=== PATIENT | female | born 1990 | race Caucasian/White ===

== ENCOUNTER 2025-02-02 10:48 | Outpatient (CLI) | payer BC, SELFPAY | END 2025-02-02 10:49 | disposition home or self-care (01) | LOC: NFLDREF 02-05 07:11 | PROVIDERS: Visit Provider Registered Nurse | DX: Z13.9 Encounter for screening, unspecified (principal) | CPT/HCPCS: 80061; 82947 ==

== ENCOUNTER 2025-03-23 17:57 | Emergency (ER) | payer BC, SELFPAY ==
--- OUTSIDE RECORDS SUMMARY | 2025-03-23 17:59 | XMS_ITS | Clinical Summary ---
Author Organization [facility] Address [address], [place] [address] Care Team Providers Care Extension Service Supervisor Name Role Phone Unassigned, Provider Primary Care Provider Unava ilable Source Comments You are receiving this document as you are listed as the primary care provider,follow-up provider, or the patient has been referred to you for consultation.This is in compliance with the Medicare andMedicaid EHR Incentive Program,which states Providers who transition their patient to another setting of careor provider of care or refers their patient to another provider of care shouldprovide summary care record for each transition of care or referral. [facility] Allergies No known active allergies Medications MedicationSigDispense QuantityRefillsLast FilledStart DateEnd DateStatus Cholecalciferol 100 MCG (4000 UT) CAPS Take 6,000 Units by mouth.Active LEVOMEFOLATE GLUCOSAMINE OR Take 1,000 mcg by mouth daily.Active VIT-FE FUMARATE-FA OR Take by mouth.Active pyridoxine (VITAMIN B-6) 100 MG tablet Take 1 Tablet (100 mg) by mouth.Active ascorbic acid (VITAMINC) 500 MG tablet Take 1 Tablet (500 mg) by mouth.Active omega-3 fatty acids (FISH OIL) 1000 MG capsule Take 2 Capsules (2,000 mg) by mouth daily.Active certolizumab pegol (CIMZIA) 200 MG/ML Indications:Rheumatoid arthritis, involving unspecified site, unspecified whether rheumatoid factor present (HRC)Inject 1 mL (200 mg) subcutaneously every 14 days. 2 Each 5Active Active Problems No known active problems Encounters DateTypeDepartmentCare EhuuTbjdtoxeooy79/07/2025Telephone [facility] [address] [address] Eula Leigh, PharmD [facility] ([facility]im[facility])01/26/2025 9:30 AM CDTPhone Visit [facility] [address] [place] [address] Eula Leigh, AnastasiiaD Rheumatoid arthritis, involving unspecified site, unspecified whether rheumatoid factor present (HRC) (Primary Dx)01/26/2025Specialty Pharmacy [facility] [address] [place] [address] Sisi Desouza PharmD 01/21/2025Results Follow-Up Rheumatology at [facility] [address] [place] [address] Johnathon Aguilar MD 01/15/2025 4:30 PM CDTLab Visit [facility] [address] [place] [address] Rheumatoid arthritis, involving unspecified site, unspecified whether rheumatoid factor present (HRC); High risk medication use01/15/2025 3:30 PM CDTOffice Visit Rheumatology at [facility] [address] [place] [address] Johnathon Aguilar MD Rheumatoid arthritis, involving unspecified site, unspecified whether rheumatoid factor present (HRC) (Primary Dx); High risk medication usefrom Last 3 Months Immunizations ImmunizationAdministration DatesNext DueInfluenza ccIIV3 6 months+ (Flucelvax) 01/15/2025PCV20 (Jxqlzcz99)01/15/2025 Social History Tobacco UseTypesPacks/DayYears UsedDateSmoking Tobacco: Never Assessed CommentsUnknownSex and Gender InformationValueDate RecordedSex Assigned at Not on fileLegal GilFweops62/28/2025 4:06 PM CDTGender IdentityNot on fileSexual OrientationNot on file Last Filed Vital Signs Vital SignReadingTime TakenCommentsBlood Pressure--Pulse--Temperature-- Respiratory Rate--Oxygen Saturation--Inhaled Oxygen Concentration--Eclrgp48.9 kg (152 lb)01/15/2025 3:55 PM HIYCqging659.1 cm (5' 5)01/15/2025 3:55 PM CDTBody Mass Index25.291 3:55 PM CDT Plan of Treatment DateTypeDepartmentCare Team (Latest Contact Info)Otveoadpvda27/23/2026 3:00 PM CSTAppointment Rheumatology at [facility] [address] [facility] [address] [place] [address] Johnathon Aguilar MD [address] [place] [address] Health MaintenanceDue DateLast DoneCommentsCervical Cancer Screening Due 1992Adult Preventive Visit02/17/2010HepB Vaccine (1)02/17/2011COVID-19 Vaccine ( season)5012/28/2021, 01/15/2021, 12/23/2020 DTaP/Tdap/Td Vaccine (13 - Tdap)5004/28/2024, 01/23/2021, 02/07/2017, Additional history existsZoster/Shingles Vaccine (2 of 2)Hib VaccineAged Out1992, 1992No longer eligible based on patient's age to complete this topicIPV (Polio) MudmpahWhnncsmnc05/16/1996, 05/30/1993, 1992, Additional history existsMCV4 VaccineAged Out07/26/2006No longer eligible based on patient's age to complete this topicHPV VaccineCompleted 01/28/2007, 12/30/2006, 09/27/2006, Additional history existsHepA Vaccine Ufvtobinj78/30/2007, 07/26/2006HIV Screening (Preventive Services)Completed 01/15/2025Hep C Screening (Preventive Services)Qcdnvbnwc48/17/2025Influenza BkauagxDpzztguyv31/17/2025, 12/23/2020, 02/13/2018, Additional history exists Pneumococcal VaccineAged Out01/15/2025No longer eligible based on patient's age to complete this topicMeningococcal B VaccineAged OutNo longer eligible based on patient's age to complete this topic Procedures Procedure NamePriorityDate/TimeAssociated DiagnosisCommentsHIV 1/2 AG/AB 4TH GEN Ndjvpjr2901/15/2025 4:36 PM CDT Rheumatoid arthritis, involving unspecified site, unspecified whether rheumatoid factor present (HRC) High risk medication use HEPATITIS C ANTIBODY, WITH REFLEX (ANTI-HCV)Danjuje1601/15/2025 4:36 PM CDT Rheumatoid arthritis, involving unspecified site, unspecified whether rheumatoid factor present (HRC) High risk medication use HEPATITIS B SURFACE ANTIGEN (HBSAG)Poktofp8901/15/2025 4:36 PM CDT Rheumatoid arthritis, involving unspecified site, unspecified whether rheumatoid factor present (HRC) High risk medication use HEPATITIS B CORE ANTIBODY (ANTI-HBC)Gzhnbcm8901/15/2025 4:36 PM CDT Rheumatoid arthritis, involving unspecified site, unspecified whether rheumatoid factor present (HRC) High risk medication use TB QUANTIFERON GOLD PLUS BYRERXXPifgvjj91/17/2025 4:36 PM CDT Rheumatoid arthritis, involving unspecified site, unspecified whether rheumatoid factor present (HRC) High risk medication use TB QUANTIFERON GOLD PLUS IE0Svzlwjg64/17/2025 4:36 PM CDT Rheumatoid arthritis, involving unspecified site, unspecified whether rheumatoid factor present (HRC) High risk medication use TB QUANTIFERON GOLD PLUS PX7Ayawojm33/17/2025 4:36 PM CDT Rheumatoid arthritis, involving unspecified site, unspecified whether rheumatoid factor present (HRC) High risk medication use TB QUANTIFERON GOLD PLUS GWKVispfot88/17/2025 4:36 PM CDT Rheumatoid arthritis, involving unspecified site, unspecified whether rheumatoid factor present (HRC) High risk medication use COMPLETE BLOOD COUNT-W/JEIITwihgrd17/17/2025 4:36 PM CDT Rheumatoid arthritis, involving unspecified site, unspecified whether rheumatoid factor present (HRC) High risk medication use TB QUANTIFERON GOLD JKASTcbfwng22/17/2025 4:36 PM CDT Rheumatoid arthritis, involving unspecified site, unspecified whether rheumatoid factor present (HRC) High risk medication use RHEUMATOID FACTOR, LYKYSWrvylpw37/17/2025 4:36 PM CDT Rheumatoid arthritis, involving unspecified site, unspecified whether rheumatoid factor present (HRC) High risk medication use ANTI-CCP CXEkreelw47/17/2025 4:36 PM CDT Rheumatoid arthritis, involving unspecified site, unspecified whether rheumatoid factor present (HRC) High risk medication use CBC AND DIFFERENTIAL YJGVENgdalqs81/17/2025 4:36 PM CDT Rheumatoid arthritis, involving unspecified site, unspecified whether rheumatoid factor present (HRC) High risk medication use CREATININE / YFNNfmninz09/17/2025 4:36 PM CDT Rheumatoid arthritis, involving unspecified site, unspecified whether rheumatoid factor present (HRC) High risk medication use VXIKeyfagg48/17/2025 4:36 PM CDT Rheumatoid arthritis, involving unspecified site, unspecified whether rheumatoid factor present (HRC) High risk medication use ALT (SGPT)Ehwxytm8901/15/2025 4:36 PM CDT Rheumatoid arthritis, involving unspecified site, unspecified whether rheumatoid factor present (HRC) High risk medication use ALKALINE PHOSPHATASE, JMBQYGdxzvrr83/17/2025 4:36 PM CDT Rheumatoid arthritis, involving unspecified site, unspecified whether rheumatoid factor present (HRC) High risk medication use from Last 3 Months Results * TB QuantiFERON Gold Plus Mitogen (01/15/2025 4:36 PM CDT)ComponentValueRef RangeTest MethodAnalysis TimePerformed AtPathologist SignatureMITOGEN>10.000 IU/mL01/18/2025 11:19 AM [facility] LABORATORYSpecimen (Source) Anatomical Location / LateralityCollection Method / VolumeCollection Time Received TimeBloodVenipuncture / Ofdbukg5901/15/2025 4:36 PM CDT1 4:36 PM CDT Narrative Authorizing ProviderResult TypeResult StatusVinay Hazel Lauren MDLAB_1Final ResultPerforming OrganizationAddressCity/State/ZIP CodePhone Number [facility] CLIA: [id number] [address] * TB QuantiFERON Gold Plus TB2 (01/15/2025 4:36 PM CDT)ComponentValueRef Range Test MethodAnalysis TimePerformed AtPathologist FlzdvkqpyHK44.147IU/mL 01/18/2025 11:30 AM [facility] LABORATORYSpecimen (Source) Anatomical Location / LateralityCollection Method / VolumeCollection Time Received TimeBloodVenipuncture / Yptsdtp8301/15/2025 4:36 PM CDT1 4:36 PM CDT Narrative Authorizing ProviderResult TypeResult StatusVinay Hazel Lauren MDLAB_1Final ResultPerforming OrganizationAddressty/State/ZIP CodePhone Number [facility] CLIA: [id number] [address] * TB QuantiFERON Gold Plus TB1 (01/15/2025 4:36 PM CDT)ComponentValueRef Range Test MethodAnalysis TimePerformed AtPathologist XszwcjvrsTU55.162IU/mL 01/18/2025 11:30 AM [facility] LABORATORYSpecimen (Source) Anatomical Location / LateralityCollection Method / VolumeCollection Time Received TimeBloodVenipuncture / Ccooxvu8701/15/2025 4:36 PM CDT1 4:36 PM CDT Narrative Authorizing ProviderResult TypeResult StatusVinay Hazel Aguilar MDLAB_1Final ResultPerforming OrganizationAddressCity/State/ZIP CodePhone Number [facility] CLIA: [id number] [address] * TB QuantiFERON Gold Plus NIL (01/15/2025 4:36 PM CDT)ComponentValueRef Range Test MethodAnalysis TimePerformed AtPathologist SignatureTB QuantiFERON Gold PlusNegative, M. tuberculosis Infection NOT likelyNegative, M. tuberculosis Infection NOT ijqfdj9701/18/2025 11:31 AM [facility] LABORATORYNIL 0.092IU/mL01/18/2025 11:31 AM [facility] LABORATORYTB1-NIL0.07IU/mL 01/18/2025 11:31 AM [facility] LABORATORYTB2-NIL0.06IU/mL01/18/2025 11:31 AM [facility] LABORATORYMitogen-NIL9.91IU/mL01/18/2025 11:31 AM [facility] LABORATORYSpecimen (Source)Anatomical Location / LateralityCollection Method / VolumeCollection TimeReceived TimeBlood Venipuncture / Lifffnp2701/15/2025 4:36 PM CDT1 4:36 PM CDT Narrative [facility] - 01/18/2025 11:31 AM CDT The results of the QuantiFERON TB Gold Plus should be correlated clinically. A single positive test in populations with a low prevalence of latent tuberculosis infection (low pretest probability), should not be taken as definitive evidence of infection. Decisions regarding retesting should be made on a case by case basis. When TB1-NIL or TB2-NIL is low (<1 IU/mL), repeat testing may alternate between positive and negative due to measurement imprecision and not necessarily a change in immune response. For more information refer to: https://www.cdc.gov/mmwr/preview/mmwrhtml/ri1920o4.htm. Authorizing ProviderResult TypeResult StatusVinsusan Aguilar MDLAB_1Final ResultPerforming OrganizationAddressCity/State/ZIP CodePhone Number [facility] CLIA: [id number] [address] * HIV 1/2 Ag/Ab 4th Generation (01/15/2025 4:36 PM CDT)ComponentValueRef Range Test MethodAnalysis TimePerformed AtPathologist SignatureHIV 1/2 Antigen/Antibody (4th generation)Negative (Non Reactive)Negative (Non Reactive)01/15/2025 7:18 PM CD[facility] LABORATORYComment:HIV-1 p24 Antigen and HIV-1/HIV-2 Antibody not detectedSpecimen (Source)Anatomical Location / LateralityCollection Method / VolumeCollection TimeReceived Time BloodVenipuncture / Iyfvrfc8101/15/2025 4:36 PM CDT1 4:36 PM CDT Narrative Authorizing ProviderResult TypeResult StatusVinsusan Oliva Talonroberta MDLAB_1Final ResultPerforming OrganizationAddressCity/State/ZIP CodePhone Number [facility] CLIA: [id number] [address] [place] [address] * Creatinine / GFR (01/15/2025 4:36 PM CDT)ComponentValueRef RangeTest Method Analysis TimePerformed AtPathologist SignatureCreatinine0.770.55 - 1.02 mg/dL 01/15/2025 7:26 PM CD[facility] LABORATORYGFR, Estimated>60>60 mL/min/1.90o72001/15/2025 7:26 PM CD[facility] LABORATORYSpecimen (Source)Anatomical Location / LateralityCollection Method / VolumeCollection TimeReceived TimeBloodVenipuncture / Airsoyd6101/15/2025 4:36 PM CDT1 4:36 PM CDT Narrative Authorizing ProviderResult TypeResult StatusVinsusan Oliva Lauren MDLAB_1Final ResultPerforming OrganizationAddressCity/State/ZIP CodePhone Number [facility] CLIA: [id number] [address] [place] [address] * CCP Antibody (01/15/2025 4:36 PM CDT)ComponentValueRef RangeTest Method Analysis TimePerformed AtPathologist SignatureAnti-CCP Antibody4.30.0 - 6.9 U/mL01/18/2025 12:27 PM CD[facility] LABORATORYAnti-CCP Antibody DamcnfclcyqmozHcdghthzCeptfaml64/20/2025 12:27 PM [facility] LABORATORYSpecimen (Source)Anatomical Location / LateralityCollection Method / VolumeCollection TimeReceived TimeBloodVenipuncture / Eipcsyd5901/15/2025 4:36 PM CDT1 4:36 PM CDT Narrative [facility] - 01/18/2025 12:27 PM CDT This result was obtained with the Bizzbya 250. Quantitative results cannot be directly compared to other manufacturers' methods. Authorizing ProviderResult TypeResult StatusVinsusan Aguilar MDLAB_1Final ResultPerforming OrganizationAddressCity/State/ZIP CodePhone Number [facility] CLIA: [id number] [address] [place] [address] * Complete Blood Count-W/Diff (01/15/2025 4:36 PM CDT)ComponentValueRef Range Test MethodAnalysis TimePerformed AtPathologist SignatureWBC8.13.5 - 10.5 x10(9)/L1 4:46 PM [facility] LABORATORYRBC4.023.90 - 5.03 x10(12)/L1 4:46 PM [facility] BZSFPHRYAOVkvcehptnt96.2 12.0 - 15.5 g/dL01/15/2025 4:46 PM [facility] ROAHMNMRDWION45.4 34.9 - 44.5 %01/15/2025 4:46 PM [facility] AJUWBUEPYVPXZ78.580.0 - 100.0 fL01/15/2025 4:46 PM [facility] NTACEUZPSHFUD45.327.6 - 33.3 pg01/15/2025 4:46 PM [facility] LUGKWAYMBXUVHF74.531.5 - 35.2 g/dL 01/15/2025 4:46 PM [facility] NUWPYKEBTXCCX54.211.9 - 15.5 % 01/15/2025 4:46 PM [facility] YUGOTIPVFYMrcyyxsuu942438 - 450 x10(9)/L1 4:46 PM [facility] LABORATORYNeutrophil Absolute5.01.7 - 7.0 10(9)/L1 4:46 PM [facility] LABORATORYLymphocyte Absolute2.21.0 - 4.8 10(9)/L1 4:46 PM [facility] LABORATORYMonocyte Absolute0.60.2 - 0.9 10(9)/L1 4:46 PM [facility] LABORATORYEosinophil Absolute0.20.0 - 0.5 10(9)/L1 4:46 PM [facility] LABORATORYBasophil Absolute 0.00.0 - 0.3 10(9)/L1 4:46 PM [facility] Immature Granulocyte %0.10.0 - 0.5 %01/15/2025 4:46 PM [facility] LABORATORYSpecimen (Source)Anatomical Location / LateralityCollection Method / VolumeCollection TimeReceived TimeBloodVenipuncture / Syzetle8501/15/2025 4:36 PM CDT1 4:36 PM CDT Narrative Authorizing ProviderResult TypeResult StatusVinsusan Aguilar MDLAB_1Final ResultPerforming OrganizationAddressCity/State/ZIP CodePhone Number [facility] CLIA: [id number] [address] [place] [address] * (ABNORMAL) Rheumatoid Factor, Quant (01/15/2025 4:36 PM CDT)ComponentValueRef RangeTest MethodAnalysis TimePerformed AtPathologist SignatureRheumatoid Factor, Cybeencemxfp20(H)<=30 IU/mL01/15/2025 7:30 PM CD[facility]ATORYSpecimen (Source)Anatomical Location / LateralityCollection Method / VolumeCollection TimeReceived TimeBloodVenipuncture / Unknown 01/15/2025 4:36 PM CDT1 4:36 PM CDT Narrative Authorizing ProviderResult TypeResult StatusVinsusan Aguilar MDLAB_1Final ResultPerforming OrganizationAddressCity/State/ZIP CodePhone Number [facility] CLIA: [id number] [address] [place] [address] * Hepatitis C Antibody, with Reflex (01/15/2025 4:36 PM CDT)ComponentValueRef RangeTest MethodAnalysis TimePerformed AtPathologist SignatureHepatitis C AntibodyNegative (Non Reactive)Negative (Non Reactive)01/15/2025 7:35 PM CDT [facility] LABORATORYComment:Antibodies to HCV not detected. Does not exclude the possiblity of exposure to HCV.Specimen (Source)Anatomical Location / LateralityCollection Method / VolumeCollection TimeReceived Time BloodVenipuncture / Osgrxea4401/15/2025 4:36 PM CDT1 4:36 PM CDT Narrative Authorizing ProviderResult TypeResult StatusJohnathon Aguilar MDLAB_1Final ResultPerforming OrganizationAddressCity/State/ZIP CodePhone Number [facility] CLIA: [id number] [address] [place] [address] * Hepatitis B Surface Antigen (01/15/2025 4:36 PM CDT)ComponentValueRef Range Test MethodAnalysis TimePerformed AtPathologist SignatureHepatitis B Surface AntigenNegative (Non Reactive)Negative (Non Reactive)01/15/2025 7:30 PM CDT [facility]ORATORYSpecimen (Source)Anatomical Location / LateralityCollection Method / VolumeCollection TimeReceived TimeBlood Venipuncture / Tujtccd8901/15/2025 4:36 PM CDT1 4:36 PM CDT Narrative Authorizing ProviderResult TypeResult StatusVinsusan Aguilar MDLAB_1Final ResultPerforming OrganizationAddressCity/State/ZIP CodePhone Number [facility] CLIA: [id number] [address] [place] [address] * Hepatitis B Core Antibody (01/15/2025 4:36 PM CDT)ComponentValueRef RangeTest MethodAnalysis TimePerformed AtPathologist SignatureHepatitis B Core Antibody Negative (Non Reactive)Negative (Non Reactive)01/15/2025 7:30 PM CDT [facility]ORATORYSpecimen (Source)Anatomical Location / LateralityCollection Method / VolumeCollection TimeReceived TimeBlood Venipuncture / Icfsxqy7401/15/2025 4:36 PM CDT1 4:36 PM CDT Narrative Authorizing ProviderResult TypeResult StatusJohnathon Aguilar MDLAB_1Final ResultPerforming OrganizationAddressCity/State/ZIP CodePhone Number [facility] CLIA: [id number] [address] * ALT (SGPT) (01/15/2025 4:36 PM CDT)ComponentValueRef RangeTest MethodAnalysis TimePerformed AtPathologist SignatureALT (SGPT)250 - 55 U/L1 7:26 PM CDTHEASC[facility] LABORATORYSpecimen (Source)Anatomical Location / LateralityCollection Method / VolumeCollection TimeReceived TimeBlood Venipuncture / Oolkpdp5001/15/2025 4:36 PM CDT1 4:36 PM CDT Narrative Authorizing ProviderResult TypeResult StatusJohnathon Aguilar MDLAB_1Final ResultPerforming OrganizationAddressCity/State/ZIP CodePhone Number [facility] CLIA: [id number] [address] * AST (01/15/2025 4:36 PM CDT)ComponentValueRef RangeTest MethodAnalysis Time Performed AtPathologist SignatureAST (SGOT)2316 - 46 U/L1 7:26 PM CDT [facility]ORATORYSpecimen (Source)Anatomical Location / LateralityCollection Method / VolumeCollection TimeReceived TimeBlood Venipuncture / Tzadnqu3401/15/2025 4:36 PM CDT1 4:36 PM CDT Narrative Authorizing ProviderResult TypeResult StatusJohnathon Aguilar MDLAB_1Final ResultPerforming OrganizationAddressCity/State/ZIP CodePhone Number [facility] CLIA: [id number] [address] * Alkaline Phosphatase, Total (01/15/2025 4:36 PM CDT)ComponentValueRef Range Test MethodAnalysis TimePerformed AtPathologist SignatureAlkaline Phosphatase 4340 - 150 U/L1 7:26 PM CDTHEASC[facility] LABORATORYSpecimen (Source)Anatomical Location / LateralityCollection Method / VolumeCollection TimeReceived TimeBloodVenipuncture / Vvyxplo4601/15/2025 4:36 PM CDT1 4:36 PM CDT Narrative Authorizing ProviderResult TypeResult StatusVinsusan Aguilar MDLAB_1Final ResultPerforming OrganizationAddressCity/State/ZIP CodePhone Number [facility] CLIA: [id number] [address] [place] [address], [facility] from Last 3 Months Insurance Care Teams Team MemberRelationshipSpecialtyStart DateEnd Date Unassigned, Provider [address] [place] [address] PCP - [facility] Specialty11/10/24
--- OUTSIDE RECORDS SUMMARY | 2025-03-23 17:59 | XMS_ITS | Clinical Summary ---
Author Organization [facility] Address [address] [place] [address] Care Team Providers Care Management Development Specialist Name Role Phone System, Provider Not In Primary Care Provider Un available Allergies No known active allergies Social History Tobacco UseTypesPacks/DayYears UsedDateSmoking Tobacco: Never AssessedAdolescent EducationAnswerDate RecordedGetting School Help NeededNot on file12/22/2022 CommentsUnknownSex and Gender InformationValueDate RecordedSex Assigned at BirthNot on fileLegal IlhCctaix47/03/2023 8:05 AM CDTGender IdentityNot on fileSexual OrientationNot on file Last Filed Vital Signs Vital SignReadingTime TakenCommentsBlood Pmmprjym005/7507 8:12 AM CDT Neaai968910/01/2022 8:12 AM EBLZkggewxgpwr96.9 ??C (98.4 ??F)10/01/2022 8:12 AM CDTRespiratory Axrm0997 8:12 AM CDTOxygen Fmwzowrhps28%10/01/2022 8:12 AM CDTInhaled Oxygen Concentration--Oiqmwk86.3 kg (155 lb)10/01/2022 8:12 AM CDT Hkmrkl452.6 cm (5' 6)10/01/2022 8:12 AM CDTBody Mass Index25.0207 8:12 AM CDT Plan of Treatment Health MaintenanceDue DateLast DoneCommentsADVANCE CARE SUWZUHSX1992ANNUAL REVIEW OF HM DIMSVW91 1992HIV XVMDOCQPF13/19/2007HEPATITIS C SCREENING 02/17/2010PAP104/19/2012YEARLY PREVENTIVE VISIT/, 09/07/2020, 03/23/2019, Additional history existsPHQ-2 (once per calendar year)2024 COVID-19 VACCINE ( season)5012/28/2021, 06/28/2021, 01/15/2021, Additional history existsINFLUENZA VACCINE (#1)509/, 12/23/2020, 12/23/2020, Additional history existsDTAP/TDAP/TD VACCINE (13 - Td or Tdap)/, 02/07/2017, 05/19/2007, Additional history exists ZOSTER VACCINE (2 of 2)HEPATITIS B VACCINECompleted 02/15/1993, 02/15/1993, 1992, Additional history existsHPV VACCINE Viybgogux19/30/2007, 12/30/2006, 09/27/2006, Additional history existsMENINGITIS GMIXINLWlnqcbajd13/19/2011, 07/26/2006PNEUMOCOCCAL VACCINE: PEDIATRICS (0 to 5 YEARS) AND AT-RISK PATIENTS (6 to 49 YEARS)Aged OutNo longer eligible based on patient's age to complete this topic Insurance * Guarantor: Rima Vergara AAccount TypeRelation to PatientDate of PhoneBilling AddressPersonal/QeotamIhol1990 [facility] [place] [address] Care Teams Team MemberRelationshipSpecialtyStart DateEnd Date System, Provider Not In PCP - GeneralClinic10/01/22
[2025-03-23 18:12] VITALS: BP 119/73; PULSE 102; RESP 18; TEMP 36.9; O2SAT 95
[2025-03-23 19:00] LABS: Strep A DNA Probe* DETECTED (Not Detectd)
[2025-03-23 19:17] LABS: PCR FLU A Negative PCR FLU A (Negative); PCR FLU B Negative PCR FLU B (Negative); PCR RSV Negative PCR RSV (Negative); SARS PCR* Negative SARS-CoV-2 (Negative)
--- NOTE | 2025-03-23 19:18 | ED.GENADULT ---
HPI - General Adult General Chief complaint: Sore Throat Stated complaint: Congestion, white spots in throat Time Seen by Provider: 03/23/25 18:01 History of Present Illness HPI narrative: This 35-year-old female comes in with family members and is reporting sore throat that began a couple days ago. She does not report any cough or other symptoms. She does state that she has some white spots on her tonsils. She has a history of strep infections and also had a tonsillar abscess that needed intervention at 1 point in the past. She does not report any fevers. Related Data Home Medications ?Medication ?Instructions ?Recorded ?Confirmed Methyl Folate PO 02/02/25 03/23/25 ascorbic acid (vitamin C) 500 mg mg PO 02/02/25 03/23/25 capsule certolizumab pegol 200 mg/mL 200 mg subcut Q2W 02/02/25 03/23/25 subcutaneous syringe kit (Cimzia) cholecalciferol (vitamin D3) 125 125 mcg PO QDAY 02/02/25 03/23/25 mcg (5,000 unit) capsule docosahexaenoic acid 200 mg mg PO 02/02/25 03/23/25 capsule ( DHA) omega 5-gzp-hjj-fish oil 1,000 mg 1 cap PO QDAY 02/02/25 03/23/25 (120 mg-180 mg) capsule (Fish Oil) pyridoxine (vitamin B6) 100 mg 100 mg PO 2XW 02/02/25 03/23/25 tablet Previous Rx's ?Medication ?Instructions ?Recorded fluticasone propionate 50 1 spray intranasal QDAY #16 grams 02/23/25 mcg/actuation nasal spray,suspension (Flonase Allergy Relief) cabergoline 0.5 mg tablet 0.25 mg (1/2 x 0.5 mg) PO 2XW #60 03/23/25 tabs progesterone micronized 200 mg 200 mg vaginal QHS #90 caps 03/23/25 capsule valacyclovir 1 gram tablet 1,000 mg PO BID #180 tabs 03/23/25 Allergies Allergy/AdvReac Type Severity Reaction Status Date / Time No Known Drug Allergies Allergy Verified 03/23/25 18:17 Review of Systems Status of ROS: Reports: 10 or more systems reviewed and unremarkable except as noted in History and below Narrative: Constitutional: No fevers, no weight gain or loss. Eyes: No discharge. No vision changes. HENT: No congestion. Sore throat and left ear pain. Cardiovascular: No chest pain, no palpitations. Respiratory: No shortness of breath, no wheezes, no cough. Gastrointestinal: No abdominal pain, no vomiting, no diarrhea. Genitourinary: No dysuria, no hematuria. Musculoskeletal: Normal range of motion. Skin: No rashes, no pruritis. Neurological: No dizziness, weakness, sensory change, speech change. Endo/Heme/Allergies: No bruising or bleeding. No polydipsia. Pysch: no suicidality, no anxiety, no insomnia. All other systems reviewed and are negative. 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 (ICD-10) Surgical History History of bunionectomy ?Z98.890 - Other specified postprocedural states (ICD-10) Neck abscess ?L02.11 - Cutaneous abscess of neck (ICD-10) Family History Father High cholesterol Mother Rheumatoid arthritis Low blood pressure Social History Narrative: , 2 children, College undergrad What is your current living situation?: I presently have a place to live Problems where you live: no known problems In the past 12 months, utilities in danger of being shut off: no In past 12 months, lack of transportation kept you from medical appts, meetings, work, or getting things needed for daily living: no In the past 12 mos, have been you worried that your food would run out before you had money to buy more?: never true In the past 12 mos, the food you bought just didn't last and you didn't have money to buy more?: never true Physical activity type: other Physical activity type details: cardio How many days of moderate to strenuous exercise, like a brisk walk, did you do in the last 7 days: 2 Smoking Status: Never smoker Do you use any of these nicotine containing products: None How often do you have a drink containing alcohol: 2-3 times a week How many standard drinks containing alcohol do you have on a typical day: 1 or 2 AUDIT-C Alcohol total score: 3 Non-prescribed substance use: marijuana (any form) Are you now , , , , never or living with a partner: Social isolation score (0-1 are the most socially isolated patients): 1 How often does anyone, including family, friends and others, physically hurt you: never How often does anyone, including family, friends and others, insult or talk down to you: never How often does anyone, including family, friends and others, threaten you with harm: never How often does anyone, including family, friends and others, scream or curse at you: never Do you think of yourself as: straight/heterosexual Gender Identity: female Are you currently sexually active: Yes What kind of protection do you use against STDs: condoms Are you using contraception or practicing any form of control: Yes Exam Narrative: Exam Narrative: Constitutional: Well-developed, well-nourished, no acute distress. HEENT: Normocephalic, atraumatic. Oropharynx has erythema with some small amount of exudate. There is moderate bilateral tonsillar hypertrophy. Tympanic membranes appear normal bilaterally. Neck: Normal range of motion. Nontender. Supple. Heart: Regular. No murmurs. Normal rate. Intact distal pulses. Lungs: Clear to auscultation. No chest discomfort. No wheezes, rhonchi, or rales. Abdomen: Normal bowel sounds. Nontender. No rebound tenderness. Genitalia: Deferred. Back: No midline tenderness. Normal range of motion. Extremities: Normal range of motion. No injury. Skin: Intact. No rash. Warm. No erythema or pallor. Neurologic: No altered sensation. No weakness. Alert and oriented. Psychiatric: No suicidality. No anxiety or depression. No insomnia. Nursing notes and vitals signs are reviewed. Const: Vital Signs, click to edit/add: Vital Signs - 24 hr 03/23/25 18:12 Temperature 98.4 F Pulse Rate [Pulse Oximeter] 102 H Respiratory Rate 18 Blood Pressure [Ri ght Upper Arm] 119/73 Pulse Oximetry 95 Oxygen Delivery Me thod Room Air Course Vital Signs Vital signs: Initial Vital Signs Temperature 98.4 F 03/23/25 18:12 Temperature Source Temporal Artery Scan 03/23/25 18:12 Pulse Rate 102 H 03/23/25 18:12 Pulse Rhythm Regular 03/23/25 18:12 Respiratory Rate 18 03/23/25 18:12 Blood Pressure 119/73 03/23/25 18:12 Blood Pressure Mean 88 03/23/25 18:12 Blood Pressure Position Sitting 03/23/25 18:12 Pulse Oximetry 95 03/23/25 18:12 Oxygen Delivery Method Room Air 03/23/25 18:12 Vital Signs Temperature 98.4 F 03/23/25 18:12 Pulse Rate 102 H 03/23/25 18:12 Respiratory Rate 18 03/23/25 18:12 Blood Pressure 119/73 03/23/25 18:12 Pulse Oximetry 95 03/23/25 18:12 Oxygen Delivery Method Room Air 03/23/25 18:12 Temperature 98.4 F 03/23/25 18:12 Pulse Rate 102 H 03/23/25 18:12 Respiratory Rate 18 03/23/25 18:12 Blood Pressure 119/73 03/23/25 18:12 Pulse Oximetry 95 03/23/25 18:12 Oxygen Delivery Method Room Air 03/23/25 18:12 Medical Decision Making MDM Narrative Medical decision making narrative: This patient comes in reporting sore throat and a oral pharyngeal swab returns positive for strep. Patient received an oral dose of dexamethasone 10 mg and a [facility] prescription for amoxicillin. I did advise regarding signs and symptoms that would indicate a need for return re-evaluation if worsening or not improving. Lab Data Labs: Lab Results 03/23/25 Range/Units 18:20 SARS-CoV-2 (PCR) Negative SARS-CoV-2 (Negative) Influenza Type A (PCR) Negative PCR FLU A (Negative) Influenza Type B (PCR) Negative PCR FLU B (Negative) RSV (PCR) Negative PCR RSV (Negative) Group A Strep DNA DETECTED A (Not Detectd) Discharge Plan Discharge Clinical Impression: Acute streptococcal pharyngitis Patient Disposition: Home, Self-Care Condition: Stable Additional Instructions: Take medication as prescribed. Use [id number] medicines also as needed and directed. Follow up with MD return if worsening. Prescriptions: No Action pyridoxine (vitamin B6) 100 mg tablet 100 mg PO 2XW cholecalciferol (vitamin D3) 125 mcg (5,000 unit) capsule 125 mcg PO QDAY DHA 200 mg capsule PO omega 8-kzh-eci-fish oil [Fish Oil] 1,000 (120-180) mg capsule 1 cap PO QDAY ascorbic acid (vitamin C) 500 mg capsule PO Cimzia 200 mg/mL syringe kit 200 mg subcut Q2W Methyl Folate 1,000 mcg tablet PO fluticasone propionate [Flonase Allergy Relief] 50 mcg/actuation spray,suspension 1 spray intranasal QDAY Qty: 16 5RF Rx Instructions: administer into each nostril progesterone micronized 200 mg capsule 200 mg vaginal QHS Qty: 90 3RF Rx Instructions: 1 capsule QHS. Start on the night of a + ovulation test, continue until menses or week 13 of a valacyclovir 1 gram tablet 1,000 mg PO BID Qty: 180 3RF cabergoline 0.5 mg tablet 0.25 mg PO 2XW Qty: 60 1RF Follow Up/Referrals: Shree Moreira MD [Primary Care Provider, Family Practice] Stand Alone Forms: [facility] Info Instructions
== END 2025-03-23 19:33 | disposition home or self-care (01) ==
LOC: ED 19:30
PROVIDERS: Emergency Provider Emergency Medicine Emergency Medical Services; PCP Family Medicine
DX: J02.0 Streptococcal pharyngitis (principal)
CPT/HCPCS: 87631; 87651; 99283; 99284; J1100